=== PATIENT | male | born 1960 ===

== ENCOUNTER 2019-03-29 07:45 | Outpatient (CLI) | payer OTHER ==
[~2019-03-29] VITALS: Ht 162.6 cm; Wt 72.6 kg
== END 2019-03-29 08:05 | disposition home or self-care (01) ==
LOC: OFIC 805 07:45
DX: H61.23 Impacted cerumen, bilateral (principal); H74.8X3 Other specified disorders of middle ear and mastoid, bilateral; R09.81 Nasal congestion

== ENCOUNTER 2019-05-03 08:26 | Outpatient (CLI) | payer OTHER ==
[~2019-05-03] VITALS: Ht 152.4 cm; Wt 72.6 kg
== END 2019-05-03 08:45 | disposition home or self-care (01) ==
LOC: OFIC 805 08:26
DX: H90.12 Conductive hearing loss, unilateral, left ear, with unrestricted hearing on the contralateral side (principal); H74.8X3 Other specified disorders of middle ear and mastoid, bilateral

== ENCOUNTER 2019-06-13 07:22 | Outpatient (CLI) | payer OTHER ==
[~2019-06-13] VITALS: Ht 152.4 cm; Wt 72.6 kg
== END 2019-06-13 13:48 | disposition home or self-care (01) ==
LOC: OFIC 805 07:22
DX: H90.12 Conductive hearing loss, unilateral, left ear, with unrestricted hearing on the contralateral side (principal); R09.81 Nasal congestion